=== PATIENT | female | born 1950 | race Caucasian/White ===

== ENCOUNTER 2024-09-07 23:48 | Emergency (ER) | payer SELFPAY ==
[2024-09-07 23:51] VITALS: BP 126/63; BMI 27.1
[2024-09-08] VITALS: BP 117/62
--- NOTE | 2024-09-08 00:08 | ED.GENMED ---
History of Present Illness
General
Chief Complaint: Fall
Source: patient and ambulance crew
Exam Limitations: none
Time Seen by Provider: 09/08/24 00:06
History of Present Illness
History of Present Illness:
See MDM
Past History
Past History
ED Past Medical History: None
ED Past Surgical History: None
Social History
Tobacco: Non-smoker
Alcohol: Occasional
Phy Exam
Physical Exam
Physical Exam:
See MDM
Course
Orders/Labs/Results
Orders:
Orders
09/08/24 00:08
Electrocardiogram (*1) Urgent
Reason for Study: Syncope
CT Head W/o Iv Contrast Urgent
Comment:
Reason For Exam: fall, head injury
EKG- Treatment ONCE
Tetanus/Diphth/Acelpertussis [Adacel] 0.5 ml IM .ONCE ONE
09/08/24 00:13
Complete Blood Count/With Diff Urgent
Comprehensive Metabolic Panel Urgent
09/08/24 00:15
CR Hand - Right Min 3 Views Urgent
Comment:
Reason For Exam: fall, swelling and ecchymosis
09/08/24 01:10
CT Cervical Spine W/o Iv Contr Urgent
Comment:
Reason For Exam: fall
Abnormal Lab Results
09/08/24
00:13
MCHC 32.6 L g/dL
(33.0-37.0)
MPV 10.5 H fL
(7.4-10.4)
Absolute Monos (auto) 0.8 H 10^3/uL
(0.1-0.6)
BUN 28 H mg/dl
(7-17)
Creatinine 1.1 H mg/dL
(0.6-1.0)
Glucose 104 H mg/dl
(70-99)
AST 47 H U/L
(14-36)
09/08/24 00:13
09/08/24 00:13
Vital Signs
Initial and Last Documented VS:
Initial Vital Signs
Temp Pulse Resp BP Pulse Ox
97.8 F 88 16 126/63 99
09/07/24 23:51 09/07/24 23:51 09/07/24 23:51 09/07/24 23:51 09/07/24 23:51
Last Documented Vital Signs
Temp Pulse Resp BP Pulse Ox
97.8 F 90 21 108/59 100
09/07/24 23:51 09/08/24 01:30 09/08/24 01:30 09/08/24 01:41 09/08/24 01:41
Procedures
Laceration Closure
Left Lateral Eye brow:
Status of Wound: dirty
Size of Wound in cm: 5
Description of Wound Edges: ragged
Preparation: cleaned with Betadine
Anesthesia: 1% Lidocaine with epi
Revision/Debridement: routine- no revision
Wound exploration: extensive cleaning of contaminated wound and explored to base- no FB
Type of Closure: single layer closure
Skin Closure Material: 6-0 nylon
Number of sutures: 8
MDM/Problems Addressed
Differential Diagnosis Includes:
HPI and MDM Narrative:
74-year-old female presenting for evaluation of head injury after a fall. Patient does admit to alcohol use earlier today. It is uncertain his fall. She cannot remember the preceding events. Patient states she thinks she may have tripped. She
does have laceration to left temporal region. EMS stating that picked out pieces of metal from the area. On exam, patient does appear mildly intoxicated. Will obtain CT head and basic blood work and EKG
Physical exam
General: Well appearing and non-toxic
HEENT: protecting airway. Pupils equal reactive. EOMI. Stellate laceration to left protestant
Neck: Nontender, supple
CV: No evidence of cyanosis
Resp: No accessory muscle use
Abd: Non-distended
Extremities: Mild bruising to right thenar eminence. No hip tenderness
Neuro: alert
Psych: Normal affect
Skin: Intact
Problems Addressed including Acute and Chronic Conditions affecting care:
1. Unwitnessed fall
Acuity: acute
Prognosis: stable
Details: Likely mechanical. Will obtain EKG and basic blood work
2. Head injury
Acuity: acute
Prognosis: stable
Details: Will obtain CT head and suture the area. Tetanus updated
3. [ ]
Acuity: acute
Prognosis: stable
Details:
4. [ ]
Acuity: acute
Prognosis: stable
Details:
5. [ ]
Acuity:
Prognosis:
Details:
Updates
1:30 AM vision radiology indicating that CT is concerning for diffuse subarachnoid hemorrhage. There is questionable left frontal lobe subdural
1:35 AM Case discussed with [facility] trauma Dr. Anderson who accepted patient. Given that there are no current ALS trucks for transport, [facility] will set up helicopter
Differential Diagnosis (but not limited to): Mechanical fall, intracranial hemorrhage, contusion, laceration
Testing considered: CT angiogram
Drug therapy (if applicable): OTC meds, please see d/c instruction regarding Rx drugs
Amount and/or Complexity of Data Reviewed
Clinical info obtained from: Patient
External data reviewed: N/A
Labs I independently reviewed (but not limited to): Hemoglobin stable
Radiology: The CT scan was personally and independently reviewed. In addition, official CT report reviewed.
Pulse Ox: not hypoxic
EKG independently reviewed: Sinus rhythm, normal axis, no STEMI
Slot Floor Supervisor: Sinus rhythm
Critical Care: The high probability of a clinically significant, sudden or life threatening deterioration of the neurovascular system(s) required my full and direct attention, intervention and personal management. The aggregate critical care time
was 35 minutes. This time is in addition to time spent performing reported procedures but includes the following:
[x] Data Review and interpretation
[x] Patient assessment and monitoring of vital signs
[x] Documentation
[x] Medication orders and management
Risk of Complication:
Social Determinants of health: Good social support
Discussed with other providers: Trauma surgeon
Escalation of Care includes Admit/Obs: Given traumatic intracranial hemorrhage, patient transferred to trauma center
Occasional wrong word or 'sound a like' substitutions may have occurred due to the inherent limitations of voice recognition software. Read the chart carefully and recognize, using context, where substitutions have occurred.
*Critical Care Note
Total Time (30-74mins, 75-104mins- exclusive of procedures): 35 min
ED Attending Note
-
Portions of this chart may have been created with voice recognition software.� Occasional wrong word or��sound alike� substitutions may have occurred due to the inherent limitations of voice recognition software.
Discharge Plan
Departure
Patient Disposition: Acute Care Hospital
Date of Disposition: 09/08/24
Time of Disposition: 01:57
Discharge Problem:
SAH (subarachnoid hemorrhage)
Prescriptions:
No Action
No Current Medications
0
Hospital Transfer
Other hospital: [facility]
I certify that the patient requires transfer: Yes
Discussed case with accepting physician: Dr. Anderson
Reason for transfer: higher level of care
Interventions
Interventions:
*Risk Screen - Suicide Last Done: 09/07/24 23:51
*General Assessment Last Done: 09/07/24 23:51
*Neglect/Abuse Screening Last Done: 09/07/24 23:51
*ED COVID-19 Vaccine History Last Done: 09/07/24 23:51
ED-Musculoskeletal Assessment Last Done: 09/08/24 00:05
ED- Neurological Assessment Last Done: 09/08/24 00:05
ED-Skin Assessment Last Done: 09/08/24 00:05
Discharge Date and Time
Print Language: YI
[2024-09-08 00:29] LABS: % Basophils 0.5 % (0-2); % Eosinophils 2.3 % (0-6); % Immature Granulocytes 0.2 % (0-0.5); % Lymphocytes 22.4 % (20.5-51.1); % Monocytes 8.2 % (1.7-9.3); % Neutrophils 66.4 % (42.2-75.2); Absolute Basophils 0.1 10^3/uL (0-0.2); Absolute Eosinophils 0.2 10^3/uL (0-0.7); Absolute Monocytes 0.8 10^3/uL (0.1-0.6); Absolute Neutrophils 6.1 10^3/uL (1.4-6.5); Hematocrit 39.9 % (37.0-47.0); Mean Corp Hgb Conc. 32.6 g/dL (33.0-37.0); Mean Corpuscular Hgb 30.2 pg (27.0-31.0); Mean Corpuscular Volume 92.8 fL (81.0-99.0); Mean Platelet Volume 10.5 fL (7.4-10.4); Nucleated Red Blood Cells % 0 %; Platelet Count 211 10^3/uL (130-400); Red Cell Dist. Width 12.9 % (11.5-14.5); White Blood Cell Count 9.1 10^3/uL (4.8-10.8)
[2024-09-08 00:36] LABS: ALT (SGPT) 28 U/L (0-35); AST (SGOT) 47 U/L (14-36); Albumin 4.1 g/dl (3.5-5.0); Alkaline Phosphatase 81 U/L (38-126); Blood Urea Nitrogen 28 mg/dl (7-17); Calcium 9.3 mg/dl (8.4-10.2); Carbon Dioxide 22 mmol/L (22-30); Chloride 107 mmol/L (98-107); Estimated Creatinine Clearance 39 ml/min; Glucose 104 mg/dl (70-99); Sodium 144 mmol/L (135-145); Total Bilirubin 0.3 mg/dl (0.2-1.3); eGFR 52.08
[2024-09-08 01:30] VITALS: BP 100/82
[2024-09-08 01:41] VITALS: BP 108/59
== END 2024-09-08 02:11 | disposition short-term general hospital (02) ==
LOC: EMR 23:48
PROVIDERS: EMERGENCY PHYSICIAN Student in an Organized Health Care Education/Training Program
DX: S06.6X9A Traumatic subarachnoid hemorrhage with loss of consciousness of unspecified duration, initial encounter (principal); S01.81XA Laceration without foreign body of other part of head, initial encounter; W19.XXXA Unspecified fall, initial encounter; Z23 Encounter for immunization
CPT/HCPCS: 99291; 12013; 70450; 72125; 73130; 80053; 85025; 93005